=== PATIENT | male | born 1995 | race Caucasian/White ===

== ENCOUNTER 2019-01-14 13:52 | Emergency (ER) | payer OTHER ==
[2019-01-14 14:57] VITALS: BP 119/77
--- NOTE | 2019-01-14 16:04 | UC ---
Eye Complaint HPI - HPI Summary HPI Summary: 23 yo with 2 day hx of right outer eye injection without photophobia, with mild discomfort and lower lid swelling. Has compressed x1, no drops used. No hx of exposures. - History of Current Complaint Chief Complaint: UCEye Stated Complaint: RIGHT EYE COMLAINT Time Seen by Provider: 01/14/19 15:53 Hx Obtained From: Patient Onset/Duration: Gradual Onset, Lasting Days - 2 Timing: Constant Severity Initially: Mild Severity Currently: Mild Pain Intensity: 2 Location of Injury: Eye Lid (lower), Sclera Character: Dull Aggravating Factor(s): Blinking Alleviating Factor(s): Nothing Associated Signs And Symptoms: Positive: Drainage (Clear). Negative: Photophobia, Vision Impairment Bilateral - Risk Factors Penetrating Injury Risk Factor: Negative Globe Rupture Risk Factors: Negative Acute Glaucoma Risk Factors: Negative Optic Artery Occlusion Risk Factors: Negative - Allergies/Home Medications Allergies/Adverse Reactions: Allergies Allergy/AdvReac Type Severity Reaction Status Date / Time No Known Allergies Allergy Verified 01/14/19 14:52 PMH/Surg Hx/FS Hx/Imm Hx Previously Healthy: Yes - Surgical History Surgical History: None - Family History Known Family History: Positive: Other - father has had PE and DVT - Social History Occupation: Employed Full-time Lives: With Family Alcohol Use: Occasionally Substance Use Type: None Smoking Status (MU): Never Smoked Tobacco Review of Systems All Other Systems Reviewed And Are Negative: Yes Constitutional: Positive: Negative Skin: Positive: Negative Eyes: Positive: Eye Redness ENT: Negative: Sore Throat, Ear Ache, Sinus Congestion Respiratory: Positive: Negative Cardiovascular: Positive: Negative Gastrointestinal: Positive: Negative Motor: Positive: Negative Neurovascular: Positive: Negative Musculoskeletal: Positive: Negative Neurological: Positive: Negative Psychological: Positive: Negative Is Patient Immunocompromised?: No Physical Exam Triage Information Reviewed: Yes Appearance: Well-Appearing, No Pain Distress Vital Signs: Initial Vital Signs Temp 98.8 F 01/14/19 14:53 Pulse 62 01/14/19 14:53 Resp 15 01/14/19 14:53 BP 119/77 01/14/19 14:53 Pulse Ox 100 01/14/19 14:53 Eye Exam: Other - FELICIANO, no photophobia Eyes: Positive: Conjunctiva Inflamed - right lateral scleral injection with boggy conjunctival sac right eyel, Other: - mild right lower lid swelling. ENT: Positive: Pharynx normal Neck: Positive: Supple, Nontender, No Lymphadenopathy Respiratory: Positive: Lungs clear, Normal breath sounds Cardiovascular: Positive: RRR, No Murmur Skin Exam: Normal Eye Complaint Course/Dx - Course Course Of Treatment: Continue compressing, use antibiotic eye drops. - Differential Dx/Diagnosis Differential Diagnosis/HQI/PQRI: Conjunctivitis, Foreign Body, Uveitis Provider Diagnosis: Conjunctivitis Discharge ED - Sign-Out/Discharge Documenting (check all that apply): Patient Departure All imaging exams completed and their final reports reviewed: No Studies - Discharge Plan Condition: Stable Disposition: HOME Prescriptions: Polymyx/Trimethoprim OPTH* [Polytrim OPHTH*] 2 drop RIGHT EYE QID #1 btl Patient Education Materials: Conjunctivitis (ED) Referrals: No Primary Care Phys,NOPCP [Primary Care Provider] - Manuel Cormier MD [Medical Doctor] - Additional Instructions: Continue compressing your eye every few hours, and use 2 drops of the antibiotic drop to the right eye every 2 hours for the remainder of the day. Continue drops 4 x daily for another 2 or 3 days, or until resolved. If the conditions worsens, you can follow up with opthalmology as per referral. - Billing Disposition and Condition Condition: STABLE Disposition: Home
== END 2019-01-14 16:18 | disposition home or self-care (01) ==
LOC: UCCORT 13:52
DX: H10.9 Unspecified conjunctivitis (principal)
CPT/HCPCS: 99202; G0463